=== PATIENT | female | born 1960 | race Caucasian/White ===

== ENCOUNTER 2017-07-17 08:24 | Inpatient (IN) | payer SELFPAY ==
[~2017-07-17] VITALS: Ht 157.5 cm; Wt 70.6 kg
[2017-07-17] VITALS (29 sets, daily range): BP systolic 109–149; BP diastolic 56–73; PULSE 35–66; RESP 0–23; TEMP 97.4–99.2; O2SAT 97–100
[2017-07-17] MEDS ORDERED: SODIUM CHLOR 0.9% 1000 ML INJ 1,000 ML IV ONE ×2 (09:15→13:30)
[2017-07-17] MEDS ORDERED: PIPERACIL-TAZO 3.375 GM PREMIX 50 ML IV ONE (09:15)
[2017-07-17] MEDS ORDERED: VANCOMYCIN INJ 1,000 MG in SODIUM CHLOR 0.9% 250 ML INJ 250 ML IV ONE (09:15)
[2017-07-17 09:26] LABS: AUTOMATED NEUTROPHIL # 7.5 TH/MM3 (1.8-7.7); BASOPHIL % 0.3 % (0.0-2.0); EOSINOPHIL # 0.1 TH/MM3 (0-0.4); EOSINOPHIL % 0.9 % (0.0-4.0); HEMATOCRIT 38.7 % (35.0-46.0); HEMO FLAGS DIFF FINAL; LYMPH % 8.6 % (9.0-44.0); LYMPHOCYTE # 0.7 TH/MM3 (1.0-4.8); MEAN CELL VOLUME 90.4 FL (80.0-100.0); MEAN CORPUSCULAR HEMOGLOBIN 30.1 PG (27.0-34.0); MEAN CORPUSCULAR HGB CONC 33.3 % (32.0-36.0); MONO % 3.6 % (0.0-8.0); NEUT % 86.6 % (16.0-70.0); PLATELET COUNT 162 TH/MM3 (150-450); RED BLOOD COUNT 4.29 MIL/MM3 (4.00-5.30); RED CELL DISTRIBUTION WIDTH 13.6 % (11.6-17.2); WHITE BLOOD COUNT 8.7 TH/MM3 (4.0-11.0)
[2017-07-17 09:34] LABS: BACTERIA, URINE FEW /hpf; BLOOD, URINE NEG (NEG); GLUCOSE,URINE TRACE mg/dL (NEG); KETONE, URINE TRACE mg/dL (NEG); MUCUS URINE FEW /lpf (OCC); NITRITE,URINE NEG (NEG); SQUAMOUS EPITHELIAL CELL URINE 2 /hpf (0-5); URINE COLOR LIGHT-YELLOW (YELLW/STRAW)
[2017-07-17 09:38] LABS: COMMENT (UR) CATH-CULTURE IND; CULTURE IF INDICATED CATH CULTURE IND
[2017-07-17 09:41] LABS: APTT (PATIENT) 24.8 SEC (24.3-30.1); PROTHROMBIN TIME - PATIENT 10.7 SEC (9.8-11.6)
[2017-07-17 09:42] LABS: ALT (GPT) 19 U/L (10-53); ANION GAP 10 MEQ/L (5-15); AST (GOT) 16 U/L (15-37); BICARBONATE 23.2 MEQ/L (21.0-32.0); BLOOD UREA NITROGEN 10 MG/DL (7-18); CHLORIDE 108 MEQ/L (98-107); GLOMERULAR FILTRATION RATE 102 ML/MIN (>89); POTASSIUM 3.1 MEQ/L (3.5-5.1); SODIUM (NA) 141 MEQ/L (136-145)
[2017-07-17 09:46] LABS: ALKALINE PHOSPHATASE 86 U/L (45-117); CREATINE KINASE 138 U/L (26-192); TOTAL BILIRUBIN ADULT 0.6 MG/DL (0.2-1.0)
--- NOTE | 2017-07-17 09:49 | RADRPT ---
EXAM DATE/TIME: 07/17/2017 09:33 [facility] COMPARISON: No previous studies available for comparison. INDICATIONS : Dizziness, nausea and vomiting. RADIATION DOSE: 34.36 CTDIvol (mGy) MEDICAL HISTORY : None SURGICAL HISTORY : Tubal ligation. ENCOUNTER: Initial ACUITY: 1 day PAIN SCALE: 4/10 LOCATION: Bilateral frontal TECHNIQUE: Multiple contiguous axial images were obtained of the head. Using automated exposure control and adj ustment of the mA and/or kV according to patient size, radiation dose was kept as low as reasonably a chievable to obtain optimal diagnostic quality images. DICOM format image data is available electro nically for review and comparison. FINDINGS: CEREBRUM: There is an area of increased attenuation in the basal ganglia bilaterally. This is more significant on the right than the left. I believe this represents calcification. There is no previous examination for direct comparison. A followup examination in 24 hours could be performed to assess for stability . The ventricles are normal in size and configuration. No extra-axial fluid collections are identifie d. No mass lesion is present. The sulci and gyri are otherwise intact. POSTERIOR FOSSA: The cerebellum and brainstem are intact. The 4th ventricle is midline. The cerebellopontine angle i s unremarkable. EXTRACRANIAL: The visualized portion of the orbits is intact. SKULL: The calvaria is intact. No evidence of skull fracture. CONCLUSION: 1. There is increased density within the basal ganglia bilaterally I believe this represents physiolo gic calcification note is more apparent on the right than the left. Please see above discussion. The examination is otherwise unremarkable. Allen Jaffe MD on July 17, 2017 at 9:46 Board Certified Radiologist. This report was verified electronically.
[2017-07-17 09:59] LABS: CKMB 1.8 NG/ML (0.5-3.6)
--- NOTE | 2017-07-17 10:05 | RADRPT ---
EXAM DATE/TIME: 07/17/2017 09:52 [facility] COMPARISON: No previous studies available for comparison. INDICATIONS : Short of breath. Patient complains of dizziness, nausea, vomiting, and headache. MEDICAL HISTORY : None. SURGICAL HISTORY : None. ENCOUNTER: Initial ACUITY: 1 day PAIN SCORE: 0/10 LOCATION: Bilateral chest FINDINGS: A single view of the chest demonstrates the lungs to be symmetrically aerated without evidence of mas s, infiltrate or effusion. The cardiomediastinal contours are unremarkable. Osseous structures are intact. CONCLUSION: No acute disease. Camacho Jaffe MD FACR on July 17, 2017 at 10:03 Board Certified Radiologist. This report was verified electronically.
[2017-07-17 11:20] LABS: LACTIC ACID GHOST NOT REPORTABLE
--- NOTE | 2017-07-17 13:17 | PD ---
HPI Chief Complaint: Dizziness Time Seen by Provider: 08:40 Travel History International Travel<30 days: No Contact w/Intl Traveler<30days: No Traveled to known affect area: No History of Present Illness HPI 57-year-old female complaining generalized malaise and weakness and dizziness and left leg redness and swelling. Patient states that she started having redness swelling of left leg several days ago. Patient does not know any injury to the left leg. Patient states that she has generalized malaise and weakness dizziness starting this morning. Patient denies any headache. Patient denies any chest pain or shortness of breath. Patient denies abdominal pain. Patient denies any focal weakness or numbness of the extremity. PFSH Past Medical History Medical History: Denies Significant Hx Tetanus Vaccination: > 5 Years Influenza Vaccination: Yes ?: Not LMP: 05/28/17 Tubal Ligation: Yes Past Surgical History Surgical History: No Previous Surgery Section: Yes Social History Alcohol Use: No Tobacco Use: No Substance Use: No Allergies-Medications (Allergen,Severity, Reaction): Coded Allergies: No Known Allergies (Verified Allergy, Unknown, 07/17/17) Reported Meds & Prescriptions Reported Meds & Active Scripts Active No Active Prescriptions or Reported Medications Review of Systems General / Constitutional: No: Fever Eyes: No: Visual changes HENT: Positive: Lightheadedness, No: Headaches Cardiovascular: No: Chest Pain or Discomfort Respiratory: No: Shortness of Breath Gastrointestinal: No: Abdominal Pain Genitourinary: No: Dysuria Musculoskeletal: No: Pain Skin: No Rash Neurologic: No: Weakness Psychiatric: No: Depression Endocrine: No: Polydipsia Hematologic/Lymphatic: No: Easy Bruising Physical Exam Narrative GENERAL: Well-nourished, well-developed patient. SKIN: Focused skin assessment warm/dry. HEAD: Normocephalic. EYES: No scleral icterus. No injection or drainage. NECK: Supple, trachea midline. No JVD or lymphadenopathy. CARDIOVASCULAR: Regular rate and rhythm without murmurs, gallops, or rubs. RESPIRATORY: Breath sounds equal bilaterally. No accessory muscle use. GASTROINTESTINAL: Abdomen soft, non-tender, nondistended. MUSCULOSKELETAL: Patient has Dell redness swelling tenderness anterior lateral aspect of the left lower leg. No calf tenderness. Negative Homans sign. BACK: Nontender without obvious deformity. No CVA tenderness. Neurologic exam: The patient is lethargic however answers questions appropriately. No obvious focal neurological deficit. Data Data Last Documented VS Vital Signs Date Time Temp Pulse Resp B/P (MAP) Pulse Ox O2 Delivery O2 Flow Rate FiO2 07/17/17 12:00 36 14 109/57 (74) 98 Room Air 07/17/17 08:55 97.4 Orders Orders Sodium Chlor 0.9% 1000 Ml Inj (Ns 1000 M (07/17/17 09:15) Vancomycin Inj (Vancomycin Inj) (07/17/17 09:15) Piperacil-Tazo 3.375 Gm Premix (Zosyn 3. (07/17/17 09:15) Complete Blood Count With Diff (07/17/17 09:04) Comprehensive Metabolic Panel (07/17/17 09:04) Prothrombin Time / Inr (Pt) (07/17/17 09:04) Act Partial Throm Time (Ptt) (07/17/17 09:04) Lactic Acid Sepsis Protocol (07/17/17 09:04) Ckmb (Isoenzyme) Profile (07/17/17 09:04) Troponin I (07/17/17 09:04) Urinalysis - C+S If Indicated (07/17/17 09:04) Blood Culture (07/17/17 09:04) Chest, Single Ap (07/17/17 09:04) Blood Glucose (07/17/17 09:04) Ecg Monitoring (07/17/17 09:04) Iv Access Insert/Monitor (07/17/17 09:04) Oximetry (07/17/17 09:04) Oxygen Administration (07/17/17 09:04) Ct Brain W/O Iv Contrast(Rout) (07/17/17 09:04) Urine Culture (07/17/17 09:05) CKMB (07/17/17 09:05) CKMB% (07/17/17 09:05) Ns (Bolus) Inj (07/17/17 13:30) Labs Laboratory Tests Test 07/17/17 09:05 07/17/17 13:05 White Blood Count 8.7 TH/MM3 Red Blood Count 4.29 MIL/MM3 Hemoglobin 12.9 GM/DL Hematocrit 38.7 % Mean Corpuscular Volume 90.4 FL Mean Corpuscular Hemoglobin 30.1 PG Mean Corpuscular Hemoglobin Concent 33.3 % Red Cell Distribution Width 13.6 % Platelet Count 162 TH/MM3 Mean Platelet Volume 8.8 FL Neutrophils (%) (Auto) 86.6 % Lymphocytes (%) (Auto) 8.6 % Monocytes (%) (Auto) 3.6 % Eosinophils (%) (Auto) 0.9 % Basophils (%) (Auto) 0.3 % Neutrophils # (Auto) 7.5 TH/MM3 Lymphocytes # (Auto) 0.7 TH/MM3 Monocytes # (Auto) 0.3 TH/MM3 Eosinophils # (Auto) 0.1 TH/MM3 Basophils # (Auto) 0.0 TH/MM3 CBC Comment DIFF FINAL Differential Comment Prothrombin Time 10.7 SEC Prothromb Time International Ratio 1.0 RATIO Activated Partial Thromboplast Time 24.8 SEC Urine Color LIGHT-YELLOW Urine Turbidity HAZY Urine pH 8.0 Urine Specific [place] 1.008 Urine Protein NEG mg/dL Urine Glucose (UA) TRACE mg/dL Urine Ketones TRACE mg/dL Urine Occult Blood NEG Urine Nitrite NEG Urine Bilirubin NEG Urine Urobilinogen LESS THAN 2.0 MG/DL Urine Leukocyte Esterase SMALL Urine RBC 3 /hpf Urine WBC 3 /hpf Urine Squamous Epithelial Cells 2 /hpf Urine Bacteria FEW /hpf Urine Mucus FEW /lpf Microscopic Urinalysis Comment CATH-CULTURE IND Blood Urea Nitrogen 10 MG/DL Creatinine 0.61 MG/DL Random Glucose 150 MG/DL Total Protein 7.0 GM/DL Albumin 3.2 GM/DL Calcium Level 7.8 MG/DL Alkaline Phosphatase 86 U/L Aspartate Amino Transf (AST/SGOT) 16 U/L Alanine Aminotransferase (ALT/SGPT) 19 U/L Total Bilirubin 0.6 MG/DL Sodium Level 141 MEQ/L Potassium Level 3.1 MEQ/L Chloride Level 108 MEQ/L Carbon Dioxide Level 23.2 MEQ/L Anion Gap 10 MEQ/L Estimat Glomerular Filtration Rate 102 ML/MIN Lactic Acid Level 2.7 mmol/L Total Creatine Kinase 138 U/L Creatine Kinase MB 1.8 NG/ML Troponin I LESS THAN 0.02 NG/ML MDM Medical Decision Making Medical Screen Exam Complete: Yes Emergency Medical Condition: Yes Interpretation(s) Last Impressions Head CT 07/17/17 0904 Signed Impressions: Service Date/Time: Monday, July 17, 2017 09:33 - CONCLUSION: 1. There is increased density within the basal ganglia bilaterally I believe this represents physiologic calcification note is more apparent on the right than the left. Please see above discussion. The examination is otherwise unremarkable. Allen Jaffe MD Chest X-Ray 07/17/17 0904 Signed Impressions: Service Date/Time: Monday, July 17, 2017 09:52 - CONCLUSION: No acute disease. Camacho Jaffe MD FACR 13:08 PM. CBC within normal limit. Potassium 3.1. Lactic acid 2.7. Cardiac enzymes are normal. UA negative. Differential Diagnosis Differential diagnosis including cellulitis, sepsis, slight imbalance, dehydration. Narrative Course 57-year-old female with generalized malaise and weakness and lightheadedness and left leg redness swelling tenderness. Normal saline solution 2 L IV bolus. Vancomycin 1 g IV. Zosyn 3.375 g IV. Diagnosis Primary Impression: Left leg cellulitis Additional Impressions: Sepsis Qualified Codes: A41.9 - Sepsis, unspecified organism Hypokalemia Admitting Information Admitting Physician Requests: Admit Scripts No Active Prescriptions or Reported Meds Carlos Torres MD Jul 17, 2017 13:17
[2017-07-17] MEDS ORDERED: RESP: ALBUTEROL 2.5 MG/IPRATROPIUM 0.5 MG NEB (PRN) INH (13:30)
[2017-07-17] MEDS ORDERED: MISCELLANEOUS NURSING INFORMATION XX SCH (13:30)
[2017-07-17] MEDS ORDERED: CHLORHEXIDINE GLUCONATE 2 % 1 PACK (2 CLOTHS) TOP PRN (13:30)
[2017-07-17] MEDS ORDERED: POTASSIUM PHOSPHATE MONOBASIC 500 MG TAB PO/TUBE PRN (13:32)
[2017-07-17] MEDS ORDERED: POTASSIUM PHOSPHATE INJ 30 MMOL in SODIUM CHLOR 0.9% 250 ML INJ 250 ML IV PRN (13:32)
[2017-07-17] MEDS ORDERED: MAGNESIUM OXIDE 400 MG TAB PO PRN (13:45)
[2017-07-17] MEDS ORDERED: POTASSIUM CHLORIDE 20 MEQ CONTROLLED RELEASE TAB PO ONE (13:45)
[2017-07-17] MEDS ORDERED: MAGNESIUM SULFATE INJ 2 GM in SODIUM CHLORIDE 0.9% INJ 96 ML IV PRN (13:45)
[2017-07-17] MEDS ORDERED: MAGNESIUM SULFATE INJ 4 GM in SODIUM CHLORIDE 0.9% INJ 92 ML IV PRN (13:45)
[2017-07-17] MEDS ORDERED: SODIUM PHOSPHATE INJ 30 MMOL in SODIUM CHLOR 0.9% 250 ML INJ 240 ML IV PRN (13:45)
[2017-07-17] MEDS ORDERED: POTASSIUM CHLORIDE 25 MEQ EFFERVESCENT TAB PO PRN (13:45)
[2017-07-17] MEDS ORDERED: GLUCAGON 1 MG/ML VIAL OTHER PRN (13:45)
[2017-07-17] MEDS ORDERED: POTASSIUM CHLOR 40 MEQ PREMIX 100 ML IV PRN ×2 (13:45)
[2017-07-17] MEDS ORDERED: POTASSIUM CHLOR 20 MEQ PREMIX 100 ML IV PRN ×2 (13:45)
[2017-07-17] MEDS ORDERED: POTASSIUM PHOSPHATE MONOBASIC 500 MG TAB PO PRN (13:45)
[2017-07-17] MEDS ORDERED: DEXTROSE 50% IN WATER 50 ML VIAL(D50) IV PUSH PRN (13:45)
[2017-07-17] MEDS: INSULIN NovoLIN REGULAR SUPPLEMENTAL SCALE SQ SCH ×2 (14:00→20:00)
--- NOTE | 2017-07-17 14:18 | RADRPT ---
EXAM DATE/TIME: 07/17/2017 13:45 [facility] COMPARISON: No previous studies available for comparison. INDICATIONS : Left leg redness and swelling. MEDICAL HISTORY : Left leg pain. SURGICAL HISTORY : Tubal ligation. section. ENCOUNTER: Initial ACUITY: 3 days PAIN SCORE: 9/10 LOCATION: Left leg. TECHNIQUE: Venous ultrasound of the leg was performed from the inguinal ligament to the proximal calf. Real-marichuy e, color Doppler and spectral tracing, compression and augmentation techniques were used. FINDINGS: There is normal compressibility of the deep venous system from the inguinal region to the proximal ca lf. No echogenic clot is seen in the lumen of the common femoral, femoral, popliteal, and posterior tibial veins. There is a normal response of the venous system to proximal and distal augmentation an d respiration. CONCLUSION: 1. No sonographic evidence for left lower extremity DVT. Joe Dudley MD on July 17, 2017 at 14:16 Board Certified Radiologist. This report was verified electronically.
[2017-07-17] MEDS: SODIUM CHLOR 0.9% 1000 ML INJ 1,000 ML IV SCH (14:23)
--- NOTE | 2017-07-17 15:02 | MH ---
cc: LAVONNE AGEE M.D. DATE OF ADMISSION: 07/17/2017 DATE OF : 1960 HISTORY OF PRESENT ILLNESS The patient is a 57-year-old female without significant past medical history, who presented to [facility] ED with complaints of malaise, generalized weakness and dizziness. She also reports swelling and redness of her left lower extremity. She denies any chest pain, shortness of breath, nausea, vomiting or any abdominal pain. She reports headaches along with blurry vision but denies any diplopia. On arrival to the ER she was bradycardic with heart rate of 40s to 50s. The patient was given atropine en route. A CT scan of the brain was obtained which showed increased density within the basal ganglia bilaterally which was thought to represent physiologic calcification. CT otherwise is unremarkable. Her laboratory data is significant for lactic acid of 2.7. The patient was given 2 liters of normal saline and her repeat lactic acid level measured at 1.5. Her troponin level was less than 0.02 with total CK of 138. In the ED the patient was given vancomycin and Zosyn. Chest x-ray in the ER showed no acute disease. The patient denies any use of a calcium channel emil or beta emil that might be attributing to her bradycardia. In addition she denies any history of thyroid disease. She is awake, alert on room air oxygen with saturation of 98%. Temperature is 97.4 orally. PAST MEDICAL HISTORY She denies any history of hypertension, diabetes mellitus, coronary artery disease. PAST SURGICAL HISTORY Previous x2. SOCIAL HISTORY Non-smoker, non-drinker. Denies any drug use. FAMILY HISTORY Noncontributory. ALLERGIES No known drug allergies. MEDICATIONS No active prescriptions. REVIEW OF SYSTEMS As per HPI. The rest of the review of systems is unremarkable. PHYSICAL EXAMINATION GENERAL: A 57-year-old female lying in bed in no acute distress. VITAL SIGNS: Temperature 97.4, pulse 40s to 50s, blood pressure 109/57, respiratory rate 14, saturation 98% on room air. HEENT: Atraumatic, normocephalic. Pupils equal and reactive to light and accommodation. Extraocular muscles intact. Conjunctiva pink. Non-icteric sclera. Oral mucosa within normal. NECK: Supple. No JVD, adenopathy or thyromegaly. Trachea in the midline. CARDIOVASCULAR: Sinus levy. Normal S1, S2. No murmurs, rubs or gallops noted. PULMONARY: Bilateral equal entry. No rales or wheezing. ABDOMEN: Soft, nontender. No distention. Positive bowel sounds. EXTREMITIES: No cyanosis or clubbing. Erythema and edema noted in the left lower extremity. NEUROLOGIC: No focal sensory deficit. LABORATORY DATA WBC 8.7, hemoglobin 12.9, hematocrit 38, platelet count 162. Sodium 141, potassium 3.1, chloride 108, CO2 23, BUN 10, creatinine 0.61, glucose 150, lactic acid 2.7, repeat 1.5. LFTs within normal. Troponin less than 0.02. Total CK 138. Albumin 3.2. INR 1, PT 10.7, PTT 24.8. Urinalysis showed small leukocyte esterase, 3 wbc's. RADIOGRAPHIC STUDIES A chest x-ray showed no acute cardiopulmonary disease. CT brain showed no acute intracranial findings. IMPRESSION 1. Cellulitis of the left lower extremity. 2. Mild lactic acidemia resolved. 3. Sinus bradycardia. 4. Dizziness, likely secondary to bradycardia. 5. Hyperglycemia. 6. Hypokalemia. PLAN/RECOMMENDATIONS 1. Monitor neuro status closely and avoid any sedatives. CT scan of the brain in the ER negative for acute intracranial findings. Will check a urine drug screen. 2. Oxygen p.r.n. to maintain sats above 92%. 3. Bronchodilators on a p.r.n. basis. 4. Monitor heart rate and blood pressure closely and maintain MAP greater than 65 mmHg. She was given 2 liters of crystalloid in the ED. Her lactic acid cleared. Will continue with IV fluids, NS at 84 mL an hour. 5. Monitor cardiac enzymes with troponins. Check EKG and will obtain 2-D echo to evaluate LV function and to rule out regional wall motion abnormalities. Consult the cardiology service. Check baseline TSH level. 6. Monitor renal function, I's and O's, and electrolyte replacement per protocol. Will need potassium replacement today. 7. Start p.o. heart-healthy diet. 8. Continue with broad-spectrum antibiotics, vancomycin and Zosyn. Monitor for signs of infections which include fever and WBC. Follow-up on blood and urine cultures which were performed in the ER. 9. Monitor her CBC. 10. Place on sliding scale insulin with Accu-Cheks for glycemic control and check a baseline TSH level as stated above. 11. No indications for GI prophylaxis. 12. DVT prophylaxis with SCDs to the right lower extremity and Lovenox 40 mg subcu daily. 13. Will check a Doppler ultrasound of the left lower extremity. 14. Further recommendations will be based on the hospital course. Addendum: Lactic acid cleared seen by Cardiology-Dr. Monique will observe for now. Will sign off and transfer care to [facility]. MD CLAUDETTE Hester/MEHNAZ /2:19 PM /2:40 PM MTDD
[2017-07-17] MEDS: ENOXAPARIN SODIUM 40 MG/0.4 ML SYRINGE SQ SCH (15:09)
[2017-07-17 15:11] LABS: CREATINE KINASE 179 U/L (26-192)
[2017-07-17] MEDS: RESP: ALBUTEROL 2.5 MG/IPRATROPIUM 0.5 MG NEB (SCH) INH ×2 (15:19→21:18)
[2017-07-17 15:24] LABS: CKMB 3.3 NG/ML (0.5-3.6)
[2017-07-17 16:02] LABS: MAGNESIUM 1.8 MG/DL (1.5-2.5)
--- NOTE | 2017-07-17 16:50 | EKG ---
Date Performed: 07/17/2017 Time Performed: 14:09:38 PTAGE: 57 years EKG: SINUS BRADYCARDIA WITH SINUS ARRHYTHMIA WITH SHORT CO INTERVAL BORDERLINE ECG NO PREVIOUS TRACING DOCTOR: Naveen Monique Interpretating Date/Time 07/17/2017 16:48:46
--- NOTE | 2017-07-17 17:08 | ECHRPT ---
Indication: bradycardia CONCLUSIONS Normal left ventricular size. Wall thickness is normal. The left ventricular systolic function is no rmal with an estimated ejection fraction in the range of 55-60%. Trace mitral valve regurgitation. There is trace tricuspid valve regurgitation. The estimated pulmonary arterial pressure is 30 mmHg. BP: / HR: Rhythm: Sinus MEASUREMENTS (Male / Female) Normal Values Technical Quality:Good 2D ECHO LV Diastolic Diameter PLAX 4.4 cm 4.2 - 5.9 / 3.9 - 5.3 cm LV Systolic Diameter PLAX 3.3 cm IVS Diastolic Thickness 0.9 cm 0.6 - 1.0 / 0.6 - 0.9 cm LVPW Diastolic Thickness 0.8 cm 0.6 - 1.0 / 0.6 - 0.9 cm LV Relative Wall Thickness 0.4 M-MODE Aortic Root Diameter MM 3.7 cm AV Cusp Separation MM 2.2 cm DOPPLER MR Peak Velocity 350.0 cm/s MR Peak Gradient 49.0 mmHg Mitral E Point Velocity 95.3 cm/s Mitral A Point Velocity 72.6 cm/s Mitral E to A Ratio 1.3 TR Peak Velocity 231.0 cm/s TR Peak Gradient 21.3 mmHg Right Atrial Pressure 10.0 mmHg Pulmonary Artery Systolic Pressu 31.3 mmHg Right Ventricular Systolic Press 31.3 mmHg FINDINGS LEFT VENTRICLE Normal left ventricular size. Wall thickness is normal. The left ventricular systolic function is normal with an estimated ejection fraction in the range of 55-60%. RIGHT VENTRICLE Normal right ventricular size and systolic function. LEFT ATRIUM The left atrial size is normal. RIGHT ATRIUM The right atrial size is normal. ATRIAL SEPTUM Normal atrial septal thickness without atrial level shunting by limited color doppler interrogation. AORTA The aortic root and proximal ascending aorta are normal in size on limited imaging. MITRAL VALVE Trace mitral valve regurgitation. AORTIC VALVE Aortic valve sclerosis is present. TRICUSPID VALVE There is trace tricuspid valve regurgitation. The estimated pulmonary arterial pressure is 30 mmHg. PULMONARY VALVE No pulmonary valve regurgitation or stenosis. VESSELS The inferior vena cava is normal in size. PERICARDIUM No pericardial effusion. Naveen Monique MD (Electronically Signed) Final Date:17 July 2017 17:07
[2017-07-17] MEDS: PIPERACIL-TAZO 4.5 GM PREMIX 100 ML IV SCH ×2 (17:57→21:19)
--- NOTE | 2017-07-17 18:14 | MB ---
cc: RAUL SORENSEN M.D. DATE OF CONSULTATION 07/17/17 REASON FOR CONSULTATION Bradycardia. HISTORY OF PRESENT ILLNESS The patient is 57-year-old white female with basically no major past medical history except for occasional vertigo for which she uses p.r.n. meclizine who presented to the hospital with dizziness, generalized malaise, nausea, vertigo. Here in the emergency department monitoring has revealed bradycardia. The patient states she had mild vertigo starting last night. When she awoke this morning the vertigo was especially severe associated with nausea, most of the day today. She has had near-syncope without any loss of consciousness. She did have one episode of vomiting earlier this morning. The patient denies chest pain, palpitations, paroxysmal nocturnal dyspnea, fevers. For the past 24 hours she has noted mild swelling of the left lower extremity. Today she has had mild dyspnea at rest. She also denies pleurisy, cough, hemoptysis. PAST MEDICAL HISTORY As above. MEDICATIONS AT HOME P.r.n. meclizine. ALLERGIES NO KNOWN DRUG ALLERGIES. FAMILY HISTORY There is no significant family history of cardiac disease. SOCIAL HISTORY The patient denies alcohol, drug or tobacco abuse. REVIEW OF SYSTEMS As in the history of present illness, otherwise negative or noncontributory. She also denies melena, bright red blood per rectum. Rarely she experiences dyspepsia. At this time she does have a moderate headache. PHYSICAL EXAMINATION VITAL SIGNS: her blood pressure 149/68 with a pulse of 54, respirations 13. GENERAL: She is a well-developed, well-nourished white female in no acute distress HEENT: On examination jugular venous pressure is normal. Carotid pulses are 2+ bilaterally without bruits. CHEST: Examination of the chest reveals unlabored respiratory effort with clear lung rizo. CARDIOVASCULAR: On cardiac examination she has a bradycardic regular rhythm without S3-S4 or murmur. ABDOMEN: On abdominal examination she has a soft, obese, nontender abdomen. Bowel sounds are present. There is no definite hepatosplenomegaly. EXTREMITIES: Examination of extremities reveals no clubbing or cyanosis. There is mild erythema and mild pretibial edema on the left lower extremity. LABORATORY DATA Laboratory data includes normal CBC, potassium 3.1, BUN 10, creatinine 0.61. Negative cardiac enzymes. TSH 1.04. IMAGING STUDIES Chest x-ray shows no acute disease. IMPRESSION Bradycardia, left lower extremity swelling in this 57-year-old white female with basically no major past medical history except for intermittent vertigo for which she uses meclizine. Her EKG does show occasional junctional escape beats. Monitoring at this time shows sinus bradycardia with heart rates in the 50s, and her heart rates for the past 2-3 hours have been trending upward. I suspect her bradycardia is mostly vasovagal mediated. She has been nauseated with moderate headache most of today. She appears to also have ongoing problems with fairly severe vertigo. Overall, there is no definite evidence for acute coronary syndrome. EKG shows no acute ST-segment or T-wave changes. Cardiac enzymes are negative for myocardial infarction. Echocardiogram is pending. Overall, I do not believe she will need a pacemaker. RECOMMENDATIONS 1. Continued cardiac monitoring. 2. Unless she develops high degree AV block or sustained heart rates in the 20s and 30s we will not recommend a permanent pacemaker. MD LULU Morales/TIKI /4:20 PM /6:04 PM [facility]
[2017-07-18] VITALS (40 sets, daily range): BP systolic 102–151; BP diastolic 52–75; PULSE 33–66; RESP 3–18; TEMP 97.6–98.9; O2SAT 97–100
[2017-07-18] MEDS ORDERED: VANCOMYCIN INJ 1,000 MG in SODIUM CHLOR 0.9% 250 ML INJ 250 ML IV SCH ×2
[2017-07-18] MEDS: SODIUM CHLOR 0.9% 1000 ML INJ 1,000 ML IV SCH ×2 (01:55→13:51)
[2017-07-18] MEDS: INSULIN NovoLIN REGULAR SUPPLEMENTAL SCALE SQ SCH ×3 (02:00→14:02)
[2017-07-18] MEDS: RESP: ALBUTEROL 2.5 MG/IPRATROPIUM 0.5 MG NEB (SCH) INH ×4 (03:21→20:55)
[2017-07-18] MEDS: CHLORHEXIDINE GLUCONATE 2 % 1 PACK (2 CLOTHS) TOP SCH (04:00)
[2017-07-18] MEDS: PIPERACIL-TAZO 4.5 GM PREMIX 100 ML IV SCH ×2 (04:00→09:04)
[2017-07-18 04:26] LABS: AUTOMATED NEUTROPHIL # 6.1 TH/MM3 (1.8-7.7); BASOPHIL % 0.4 % (0.0-2.0); EOSINOPHIL % 0.2 % (0.0-4.0); HEMATOCRIT 38.3 % (35.0-46.0); HEMO FLAGS DIFF FINAL; LYMPH % 15.8 % (9.0-44.0); LYMPHOCYTE # 1.3 TH/MM3 (1.0-4.8); MEAN CELL VOLUME 90.2 FL (80.0-100.0); MEAN CORPUSCULAR HEMOGLOBIN 29.5 PG (27.0-34.0); MEAN CORPUSCULAR HGB CONC 32.7 % (32.0-36.0); MONO % 7.6 % (0.0-8.0); PLATELET COUNT 183 TH/MM3 (150-450); RED BLOOD COUNT 4.24 MIL/MM3 (4.00-5.30); RED CELL DISTRIBUTION WIDTH 13.6 % (11.6-17.2)
[2017-07-18 04:47] LABS: ANION GAP 8 MEQ/L (5-15); AST (GOT) 13 U/L (15-37); BICARBONATE 24.9 MEQ/L (21.0-32.0); BLOOD UREA NITROGEN 6 MG/DL (7-18); CHLORIDE 110 MEQ/L (98-107); GLOMERULAR FILTRATION RATE 96 ML/MIN (>89); MAGNESIUM 1.8 MG/DL (1.5-2.5); POTASSIUM 3.7 MEQ/L (3.5-5.1); SODIUM (NA) 143 MEQ/L (136-145)
[2017-07-18 04:48] LABS: ALT (GPT) 16 U/L (10-53)
[2017-07-18 04:56] LABS: ALKALINE PHOSPHATASE 76 U/L (45-117); FREE T4 0.97 NG/DL (0.76-1.46); TOTAL BILIRUBIN ADULT 0.4 MG/DL (0.2-1.0)
--- NOTE | 2017-07-18 09:41 | PD.CARD.PN ---
Subjective Subjective Remarks Mildly dizzy. (+) vertigo. Mild headache. No ear pain, CP, dyspnea, palpitations. Nauseated. No vomiting. Objective Medications Item Value Date Time Enoxaparin Sodium 40 mg 07/17/17 1500 (Lovenox Inj) Q24H/SQ 07/17/17 1509 Vital Signs / I&O Vital Signs Date Time Temp Pulse Resp B/P (MAP) Pulse Ox O2 Delivery O2 Flow Rate FiO2 07/18/17 06:00 46 07/18/17 04:30 34 8 100 07/18/17 04:15 33 6 100 07/18/17 04:01 38 3 110/58 (75) 99 07/18/17 04:00 46 07/18/17 04:00 98.5 39 5 98 07/18/17 03:45 41 15 99 07/18/17 03:30 40 16 100 07/18/17 03:22 100 07/18/17 03:15 36 10 99 07/18/17 03:00 37 11 121/57 (78) 100 07/18/17 02:45 36 10 100 07/18/17 02:30 34 13 100 07/18/17 02:15 40 14 100 07/18/17 02:00 46 07/18/17 02:00 40 14 107/57 (74) 100 07/18/17 01:45 42 16 99 07/18/17 01:30 42 15 99 07/18/17 01:15 44 16 100 07/18/17 01:00 66 16 108/57 (74) 100 07/18/17 00:45 37 16 100 07/18/17 00:30 37 9 100 07/18/17 00:15 48 7 100 07/18/17 00:00 46 07/18/17 00:00 98.9 42 9 118/58 (78) 99 07/17/17 23:45 38 14 98 07/17/17 23:30 35 17 99 07/17/17 23:25 98 07/17/17 23:15 38 2 100 07/17/17 23:00 41 07/17/17 23:00 40 7 112/59 (76) 99 07/17/17 22:45 44 11 98 07/17/17 22:30 45 13 97 07/17/17 22:15 46 12 97 07/17/17 22:01 46 0 117/56 (76) 98 07/17/17 22:00 41 07/17/17 22:00 46 0 98 07/17/17 21:45 48 12 98 07/17/17 21:30 41 8 100 07/17/17 21:22 99 21 07/17/17 21:15 37 11 98 07/17/17 21:00 99.1 44 10 132/73 (92) 100 07/17/17 20:45 66 23 100 07/17/17 20:30 48 18 99 07/17/17 20:30 48 18 99 07/17/17 20:15 47 16 98 07/17/17 18:00 38 10 121/57 (78) 100 07/17/17 18:00 37 07/17/17 17:00 99.2 49 12 138/65 (89) 100 07/17/17 17:00 37 07/17/17 16:30 07/17/17 15:20 100 21 07/17/17 15:15 100 07/17/17 15:00 40 13 149/68 (95) 100 Room Air 07/17/17 14:00 48 12 135/61 (85) 100 Room Air 07/17/17 13:00 36 14 119/60 (79) 100 Room Air 07/17/17 12:00 36 14 109/57 (74) 98 Room Air 07/17/17 11:43 45 12 119/62 (81) 100 Room Air I/O 07/17/17 07/17/17 07/17/17 07/18/17 07/18/17 07/18/17 07:00 15:00 23:00 07:00 15:00 23:00 Intake Total 2300 ml 240 ml 500 ml Output Total 400 ml Balance 2300 ml 240 ml 100 ml Intake Oral 240 ml 500 ml IV Total 2300 ml Output Urine Total 400 ml # Voids 1 0 Physical Exam GENERAL: Well developed, well nourished. No acute distress. HEENT: Jugular venous pressure is normal. CHEST: Lungs clear to auscultation anteriorly. CARDIAC: Bradycardic regular rhythm without S3, S4, or murmur. ABDOMEN: Soft, nontender, no hepatosplenomegaly. Bowel sounds present. EXTREMITIES: No clubbing, cyanosis, or edema. Left lower extremity erythema much improved. Laboratory Laboratory Tests Test 07/17/17 13:05 07/17/17 13:50 07/17/17 16:30 07/18/17 04:07 Lactic Acid Level 1.5 mmol/L 1.4 mmol/L Phosphorus Level 3.5 MG/DL 4.2 MG/DL Magnesium Level 1.8 MG/DL 1.8 MG/DL Total Creatine Kinase 179 U/L Creatine Kinase MB 3.3 NG/ML Troponin I LESS THAN 0.02 NG/ML Thyroid Stimulating Hormone 3rd Gen 1.040 uIU/ML 0.581 uIU/ML Nasal Screen MRSA (PCR) MRSA NOT DETECTED White Blood Count 8.0 TH/MM3 Red Blood Count 4.24 MIL/MM3 Hemoglobin 12.5 GM/DL Hematocrit 38.3 % Mean Corpuscular Volume 90.2 FL Mean Corpuscular Hemoglobin 29.5 PG Mean Corpuscular Hemoglobin Concent 32.7 % Red Cell Distribution Width 13.6 % Platelet Count 183 TH/MM3 Mean Platelet Volume 8.3 FL Neutrophils (%) (Auto) 76.0 % Lymphocytes (%) (Auto) 15.8 % Monocytes (%) (Auto) 7.6 % Eosinophils (%) (Auto) 0.2 % Basophils (%) (Auto) 0.4 % Neutrophils # (Auto) 6.1 TH/MM3 Lymphocytes # (Auto) 1.3 TH/MM3 Monocytes # (Auto) 0.6 TH/MM3 Eosinophils # (Auto) 0.0 TH/MM3 Basophils # (Auto) 0.0 TH/MM3 CBC Comment DIFF FINAL Differential Comment Blood Urea Nitrogen 6 MG/DL Creatinine 0.64 MG/DL Random Glucose 92 MG/DL Total Protein 6.5 GM/DL Albumin 2.8 GM/DL Calcium Level 8.1 MG/DL Alkaline Phosphatase 76 U/L Aspartate Amino Transf (AST/SGOT) 13 U/L Alanine Aminotransferase (ALT/SGPT) 16 U/L Total Bilirubin 0.4 MG/DL Sodium Level 143 MEQ/L Potassium Level 3.7 MEQ/L Chloride Level 110 MEQ/L Carbon Dioxide Level 24.9 MEQ/L Anion Gap 8 MEQ/L Estimat Glomerular Filtration Rate 96 ML/MIN Free Thyroxine 0.97 NG/DL Assessment and Plan Problem List: (1) Bradycardia ICD Codes: R00.1 - Bradycardia, unspecified Status: Acute Plan: Persistent bradycardia this morning, often in junctional rhythm or sinus bradycardia with junctional escape beats. Patient normotensive. Echo normal. Her "dizziness" appears more due to vertigo. Suspect some of the bradycardia may be vasovagal induced. REC continued monitoring, no dopamine or Isuprel unless she is hypotensive treat her vertigo, consider outpatient physical therapy as this problem has been ongoing for many years treat her nausea consider ruling out acute cerebellar CVA Code Status full code Discussed Condition With patient Naveen Monique MD Jul 18, 2017 09:41
[2017-07-18] MEDS ORDERED: ONDANSETRON HCL 4 MG/2 ML VIAL IV PUSH PRN (09:45)
[2017-07-18] MEDS ORDERED: ONDANSETRON HCL 4 MG/2 ML VIAL IV PUSH ONE (10:00)
[2017-07-18 10:45] LABS: HEMOGLOBIN A1a 1.3 %; HEMOGLOBIN A1b 0.8 %; HEMOGLOBIN Ao 84.3 %; HEMOGLOBIN F 1.4 %; HEMOGLOBIN P3 3.7 %
--- NOTE | 2017-07-18 11:26 | HHI.PR ---
Subjective Remarks Follow-up for vertigo possible infection Patient stated she came in more due to her vertigo. She said that she had this for many years and she's been on meclizine in the past. She felt like it has worsened. She denies any chest pain, palpitation, shortness of breathing, or lightheadedness. She states she did not know that she had a heart issue. Patient also complaining of an infection on her left prince. Patient's nurse is at the bedside during interview. Objective Vitals Vital Signs Date Time Temp Pulse Resp B/P (MAP) Pulse Ox O2 Delivery O2 Flow Rate FiO2 07/18/17 10:28 99 07/18/17 06:00 46 07/18/17 04:30 34 8 100 07/18/17 04:15 33 6 100 07/18/17 04:01 38 3 110/58 (75) 99 07/18/17 04:00 46 07/18/17 04:00 98.5 39 5 98 07/18/17 03:45 41 15 99 07/18/17 03:30 40 16 100 07/18/17 03:22 100 07/18/17 03:15 36 10 99 07/18/17 03:00 37 11 121/57 (78) 100 07/18/17 02:45 36 10 100 07/18/17 02:30 34 13 100 07/18/17 02:15 40 14 100 07/18/17 02:00 46 07/18/17 02:00 40 14 107/57 (74) 100 07/18/17 01:45 42 16 99 07/18/17 01:30 42 15 99 07/18/17 01:15 44 16 100 07/18/17 01:00 66 16 108/57 (74) 100 07/18/17 00:45 37 16 100 07/18/17 00:30 37 9 100 07/18/17 00:15 48 7 100 07/18/17 00:00 46 07/18/17 00:00 98.9 42 9 118/58 (78) 99 07/17/17 23:45 38 14 98 07/17/17 23:30 35 17 99 07/17/17 23:25 98 07/17/17 23:15 38 2 100 07/17/17 23:00 41 07/17/17 23:00 40 7 112/59 (76) 99 07/17/17 22:45 44 11 98 07/17/17 22:30 45 13 97 07/17/17 22:15 46 12 97 07/17/17 22:01 46 0 117/56 (76) 98 07/17/17 22:00 41 07/17/17 22:00 46 0 98 07/17/17 21:45 48 12 98 07/17/17 21:30 41 8 100 07/17/17 21:22 99 21 07/17/17 21:15 37 11 98 07/17/17 21:00 99.1 44 10 132/73 (92) 100 07/17/17 20:45 66 23 100 07/17/17 20:30 48 18 99 07/17/17 20:30 48 18 99 07/17/17 20:15 47 16 98 07/17/17 18:00 38 10 121/57 (78) 100 07/17/17 18:00 37 07/17/17 17:00 99.2 49 12 138/65 (89) 100 07/17/17 17:00 37 07/17/17 16:30 07/17/17 15:20 100 21 07/17/17 15:15 100 07/17/17 15:00 40 13 149/68 (95) 100 Room Air 07/17/17 14:00 48 12 135/61 (85) 100 Room Air 07/17/17 13:00 36 14 119/60 (79) 100 Room Air 07/17/17 12:00 36 14 109/57 (74) 98 Room Air 07/17/17 11:43 45 12 119/62 (81) 100 Room Air I/O 07/17/17 07/17/17 07/17/17 07/18/17 07/18/17 07/18/17 07:00 15:00 23:00 07:00 15:00 23:00 Intake Total 2300 ml 240 ml 500 ml Output Total 400 ml Balance 2300 ml 240 ml 100 ml Intake Oral 240 ml 500 ml IV Total 2300 ml Output Urine Total 400 ml # Voids 1 0 Result Diagram: 07/18/1740607/18/17406 Objective Remarks GENERAL: in NAD SKIN: right erythematous papule with minimal pustular fluid incase on the mid prince HEAD: Normocephalic. EYES: No scleral icterus. No injection or drainage. NECK: Supple, trachea midline. No JVD or lymphadenopathy. CARDIOVASCULAR: Regular rate and rhythm without murmurs, gallops, or rubs. RESPIRATORY: Breath sounds equal bilaterally. No accessory muscle use. GASTROINTESTINAL: Abdomen soft, non-tender, nondistended. MUSCULOSKELETAL: No cyanosis, or edema. BACK: Nontender without obvious deformity. No CVA tenderness. Medications and IVs Current Medications Sodium Chloride 1,000 ml @ 999 mls/hr BOLUS ONCE IV Last administered on 07/17 09:47; Start 07/17/17 at 09:15; Stop 07/17/17 at 10:15; Status DC Vancomycin HCl 1000 mg/Sodium Chloride 250 ml @ 250 mls/hr ONCE ONCE IV Last administered on 07/17/17 12:06; Start 07/17/17 at 09:15; Stop 07/18/17 at 10:01 ; Status DC Piperacillin Sod/ Tazobactam Sod 50 ml @ 100 mls/hr ONCE ONCE IV Last administered on 07/17/17 09:47; Start 07/17/17 at 09:15; Stop 07/17/17 at 09:44 ; Status DC Sodium Chloride 1,000 ml @ 999 mls/hr BOLUS ONCE IV Last administered on 07/17 13:42; Start 07/17/17 at 13:30; Stop 07/17/17 at 14:30; Status DC Albuterol/ Ipratropium (Duoneb Neb) 1 ampule Q6HR NEB INH Last administered on 07/17/17 21:18; Start 07/17/17 at 16:00 Albuterol/ Ipratropium (Duoneb Neb) 1 ampule Q2HR NEB PRN INH WHEEZING; Start 07/17/17 at 13:30 Enoxaparin Sodium (Lovenox Inj) 40 mg Q24H SQ Last administered on 07/17/17 15 :09; Start 07/17/17 at 15:00 Miscellaneous Information 1 Q361D XX ; Start 07/17/17 at 13:30 Chlorhexidine Gluconate (Chlorhexidine 2% Cloth) 3 pack Taper DAILY@04 TOP Last administered on 07/18/17 04:00; Start 07/18/17 at 04:00; Stop 07/14/18 at 03:59 Chlorhexidine Gluconate (Chlorhexidine 2% Cloth) 3 pack UNSCH PRN TOP HYGIENIC CARE; Start 07/17/17 at 13:30 Dextrose (D50w (Vial) Inj) 50 ml UNSCH PRN IV PUSH HYPOGLYCEMIA-SEE COMMENTS; Start 07/17/17 at 13:45 Glucagon (Glucagon Inj) 1 mg UNSCH PRN OTHER HYPOGLYCEMIA-SEE COMMENTS; Start 07/17/17 at 13:45 Insulin Human Regular (NovoLIN R SUPPLEMENTAL SCALE) 1 Q6H SQ ; Start 07/17/17 at 14:00 Potassium Chloride 100 ml @ 50 mls/hr Q2H PRN IV For Potassium 2.8 - 3.2 mEq/L ; Start 07/17/17 at 13:45 Potassium Chloride 100 ml @ 50 mls/hr Q2H PRN IV For Potassium 2.8 - 3.2 mEq/L ; Start 07/17/17 at 13:45 Potassium Bicarb/ Potassium Chloride (K-Lyte Cl Eff) 50 meq UNSCH PRN PO For Potassium 3.3 - 3.5 mEq/L; Start 07/17/17 at 13:45 Potassium Chloride 100 ml @ 25 mls/hr UNSCH PRN IV For Potassium 3.3 - 3.5 mEq /L; Start 07/17/17 at 13:45 Potassium Chloride 100 ml @ 50 mls/hr Q2H PRN IV For Potassium 3.3 - 3.5 mEq/L ; Start 07/17/17 at 13:45 Magnesium Sulfate 4 gm/Sodium Chloride 100 ml @ 50 mls/hr UNSCH PRN IV For Magnesium 0.9 - 1.1 mg/dL; Start 07/17/17 at 13:45 Magnesium Oxide (Mag-Ox) 800 mg UNSCH PRN PO For Magnesium 1.2 - 1.6 mg/dL; Start 07/17/17 at 13:45 Magnesium Sulfate 2 gm/Sodium Chloride 100 ml @ 50 mls/hr UNSCH PRN IV For Magnesium 1.2 - 1.6 mg/dL; Start 07/17/17 at 13:45 Potassium Phosphate (K-Phos) 2,000 mg Q4H PRN PO For Phosphorus < 2.5 mg/dL; Start 07/17/17 at 13:45 Sodium Phosphate 30 mmol/Sodium Chloride 250 ml @ 42 mls/hr UNSCH PRN IV For Phosphorus < 2.5 mg/dL; Start 07/17/17 at 13:45 Potassium Phosphate (K-Phos) 2,000 mg UNSCH PRN PO/TUBE SEE LABEL COMMENTS; Start 07/17/17 at 13:32 Potassium Phosphate 30 mmol/ Sodium Chloride 260 ml @ 42 mls/hr UNSCH PRN IV SEE LABEL COMMENTS; Start 07/17/17 at 13:32 Potassium Chloride (KCl) 40 meq ONCE ONCE PO Last administered on 07/17/17 14 :37; Start 07/17/17 at 13:45; Stop 07/17/17 at 13:46; Status DC Sodium Chloride 1,000 ml @ 84 mls/hr [id number] IV Last administered on 01:55; Start 07/17/17 at 14:00 Vancomycin HCl 1000 mg/Sodium Chloride 250 ml @ 250 mls/hr Q12H IV Last administered on 07/18/17 00:00; Start 07/18/17 at 00:00; Stop 07/18/17 at 10:01 ; Status DC Piperacillin Sod/ Tazobactam Sod 100 ml @ 200 mls/hr Q6H IV Last administered on 07/18/17 09:04; Start 07/17/17 at 16:00; Stop 07/18/17 at 10:01; Status DC Meclizine HCl (Antivert) 25 mg TID PO ; Start 07/18/17 at 13:00 Ondansetron HCl (Zofran Inj) 4 mg Q8HR PRN IV PUSH NAUSEA; Start 07/18/17 at 09 :45 Ondansetron HCl (Zofran Inj) 4 mg ONCE ONCE IV PUSH ; Start 07/18/17 at 10:00; Stop 07/18/17 at 10:01; Status DC Cephalexin Monohydrate (Keflex) 500 mg Q6HR PO ; Start 07/18/17 at 12:00 A/P Assessment and Plan Cellulitis of the left lower extremity/Impetigo. -Patient was on vancomycin and Zosyn. A second improvement. Will discontinue medication. Start Keflex and monitor clinically. Sinus bradycardia -Seemed to be asymptomatic. [employer] following. At the moment no indication for any pacemaker. -Per [employer] inspector repairer continued monitoring, no dopamine or Isuprel unless she is hypotensive. Vertigo, chronic -Patient has been on meclizine the past. Will try meclizine again. Will get MRI of the head. We'll also consult PT. Hypokalemia -Replenish as needed. DVT prophylaxis -On Lovenox. Patrica Canada MD Jul 18, 2017 11:26
[2017-07-18] MEDS: CEPHALEXIN MONOHYDRATE 500 MG CAP PO SCH ×3 (13:30→23:21)
[2017-07-18] MEDS: MECLIZINE HCL 25 MG TAB PO SCH ×2 (13:30→17:05)
[2017-07-18] MEDS: ENOXAPARIN SODIUM 40 MG/0.4 ML SYRINGE SQ SCH (15:45)
[2017-07-19] VITALS (26 sets, daily range): BP systolic 91–126; BP diastolic 51–68; PULSE 41–75; RESP 12–22; TEMP 98.2–98.6; O2SAT 95–100
[2017-07-19] MEDS: SODIUM CHLOR 0.9% 1000 ML INJ 1,000 ML IV SCH ×2 (01:45→14:03)
[2017-07-19] MEDS: CHLORHEXIDINE GLUCONATE 2 % 1 PACK (2 CLOTHS) TOP SCH (04:00)
[2017-07-19] MEDS: RESP: ALBUTEROL 2.5 MG/IPRATROPIUM 0.5 MG NEB (SCH) INH ×4 (04:00→20:13)
[2017-07-19] MEDS: CEPHALEXIN MONOHYDRATE 500 MG CAP PO SCH ×4 (05:14→23:53)
[2017-07-19 07:43] LABS: HEMATOCRIT 38.1 % (35.0-46.0); MEAN CELL VOLUME 89.3 FL (80.0-100.0); MEAN CORPUSCULAR HEMOGLOBIN 29.8 PG (27.0-34.0); MEAN CORPUSCULAR HGB CONC 33.4 % (32.0-36.0); PLATELET COUNT 175 TH/MM3 (150-450); RED BLOOD COUNT 4.27 MIL/MM3 (4.00-5.30); RED CELL DISTRIBUTION WIDTH 13.4 % (11.6-17.2); REVIEW FLAG FINAL; WHITE BLOOD COUNT 6.8 TH/MM3 (4.0-11.0)
[2017-07-19 08:28] LABS: BICARBONATE 26.3 MEQ/L (21.0-32.0)
[2017-07-19 08:35] LABS: POTASSIUM 2.9 MEQ/L (3.5-5.1)
[2017-07-19] MEDS: MECLIZINE HCL 25 MG TAB PO SCH ×3 (08:53→17:26)
[2017-07-19] MEDS ORDERED: POTASSIUM CHLORIDE 10 MEQ CONTROLLED RELEASE TAB PO ONE (10:00)
[2017-07-19] MEDS ORDERED: POTASSIUM CHLOR 20 MEQ PREMIX 100 ML IV ONE (10:00)
--- NOTE | 2017-07-19 10:16 | PD.CARD.PN ---
Subjective Subjective Remarks Continues to feel better. Vertigo resolving. Nausea resolved. No CP, dyspnea , palpitations. Objective Medications Item Value Date Time Enoxaparin Sodium 40 mg 07/17/17 1500 (Lovenox Inj) Q24H/SQ 07/18/17 1545 Vital Signs / I&O Vital Signs Date Time Temp Pulse Resp B/P (MAP) Pulse Ox O2 Delivery O2 Flow Rate FiO2 07/19/17 07:00 49 07/19/17 07:00 98.2 58 20 126/51 (76) 100 07/19/17 06:00 46 07/19/17 05:00 48 07/19/17 04:00 44 07/19/17 03:00 98.2 41 22 116/66 (83) 99 07/19/17 03:00 45 07/19/17 02:00 46 07/19/17 01:00 46 07/19/17 00:00 42 07/18/17 23:00 52 07/18/17 23:00 98.4 44 16 103/52 (69) 98 07/18/17 22:00 52 07/18/17 21:00 42 07/18/17 20:00 46 07/18/17 19:14 45 07/18/17 19:00 98.4 51 18 102/52 (69) 99 07/18/17 18:06 44 07/18/17 17:00 46 07/18/17 16:27 99 21 07/18/17 16:02 44 07/18/17 15:04 41 07/18/17 14:09 46 07/18/17 12:00 35 07/18/17 12:00 35 16 130/62 (84) 98 07/18/17 11:00 36 4 135/60 (85) 99 07/18/17 10:28 99 I/O 07/18/17 07/18/17 07/18/17 07/19/17 07/19/17 07/19/17 07:00 15:00 23:00 07:00 15:00 23:00 Intake Total 500 ml 912 ml 1080 ml Output Total 400 ml 1000 ml Balance 100 ml 912 ml 80 ml Intake Oral 500 ml 480 ml 240 ml IV Total 432 ml 840 ml Output Urine Total 400 ml 1000 ml # Voids 3 1 # Bowel Movements 0 Physical Exam GENERAL: Well developed, well nourished. No acute distress. HEENT: Jugular venous pressure is normal. CHEST: Lungs clear to auscultation anteriorly. CARDIAC: Bradycardic regular rhythm without S3, S4, or murmur. ABDOMEN: Soft, nontender, no hepatosplenomegaly. Bowel sounds present. EXTREMITIES: No clubbing, cyanosis, or edema. Laboratory Laboratory Tests Test 07/19/17 06:48 White Blood Count 6.8 TH/MM3 Red Blood Count 4.27 MIL/MM3 Hemoglobin 12.7 GM/DL Hematocrit 38.1 % Mean Corpuscular Volume 89.3 FL Mean Corpuscular Hemoglobin 29.8 PG Mean Corpuscular Hemoglobin Concent 33.4 % Red Cell Distribution Width 13.4 % Platelet Count 175 TH/MM3 Mean Platelet Volume 8.4 FL Blood Urea Nitrogen 8 MG/DL Creatinine 0.60 MG/DL Random Glucose 89 MG/DL Calcium Level 8.2 MG/DL Sodium Level 142 MEQ/L Potassium Level 2.9 MEQ/L Chloride Level 108 MEQ/L Carbon Dioxide Level 26.3 MEQ/L Anion Gap 8 MEQ/L Estimat Glomerular Filtration Rate 104 ML/MIN Assessment and Plan Problem List: (1) Bradycardia ICD Codes: R00.1 - Bradycardia, unspecified Status: Acute Plan: Gradually improving HR's, currently 58. Patient normotensive. Echo normal. Her "dizziness" appears more due to vertigo. Suspect some of the bradycardia may have been vasovagal induced. REC continued monitoring continue meclizine, consider outpatient physical therapy for her vertigo which has been chronic often severe problem consider discharge tomorrow if remains stable Code Status full code Discussed Condition With patient Naveen Monique MD Jul 19, 2017 10:16
[2017-07-19] MEDS: ENOXAPARIN SODIUM 40 MG/0.4 ML SYRINGE SQ SCH (14:03)
--- NOTE | 2017-07-19 14:10 | HHI.PR ---
Subjective Remarks RN reports no setbacks since last night. When walking into the room, pt c/o severe right arm pain where her IV line is in place, said it started hurting alot more after just finishing with her sponge bath. She does state that the pain in her left leg is improved since admission. Objective Vital Signs Date Time Temp Pulse Resp B/P (MAP) Pulse Ox O2 Delivery O2 Flow Rate FiO2 07/19/17 13:00 60 07/19/17 12:00 60 07/19/17 11:00 54 07/19/17 11:00 48 19 109/55 (73) 98 07/19/17 10:35 98 07/19/17 10:00 64 07/19/17 09:00 70 07/19/17 08:00 50 07/19/17 07:00 49 07/19/17 07:00 98.2 58 20 126/51 (76) 100 07/19/17 06:00 46 07/19/17 05:00 48 07/19/17 04:00 44 07/19/17 03:00 98.2 41 22 116/66 (83) 99 07/19/17 03:00 45 07/19/17 02:00 46 07/19/17 01:00 46 07/19/17 00:00 42 07/18/17 23:00 52 07/18/17 23:00 98.4 44 16 103/52 (69) 98 07/18/17 22:00 52 07/18/17 21:00 42 07/18/17 20:00 46 07/18/17 19:14 45 07/18/17 19:00 98.4 51 18 102/52 (69) 99 07/18/17 18:06 44 07/18/17 17:00 46 07/18/17 16:27 99 21 07/18/17 16:02 44 07/18/17 15:04 41 07/18/17 14:09 46 I/O 07/18/17 07/18/17 07/18/17 07/19/17 07/19/17 07/19/17 07:00 15:00 23:00 07:00 15:00 23:00 Intake Total 500 ml 912 ml 1080 ml Output Total 400 ml 1000 ml Balance 100 ml 912 ml 80 ml Intake Oral 500 ml 480 ml 240 ml IV Total 432 ml 840 ml Output Urine Total 400 ml 1000 ml # Voids 3 1 # Bowel Movements 0 Result Diagram: 07/19/1764707/19/17647 Objective Remarks Right arm appears unremarkable, has good cap refill in right fingertips as well as good radial pulse. No worsening of right arm pain upon arm extension or flexion, no discoloration or edema noted where patient is playing the pain. Has mild to moderate tenderness to palpation just distal to IV line site. Patient is tearful and is eventually able to hold a conversation and stop crying. Left leg with erythema on anterior prince with central area of an open wound with no active drainage A/P Assessment and Plan Cellulitis of the left lower extremity/Impetigo. -Was transitioned to Keflex yesterday, continue as such, gabrielle erythematous boundaries daily, will obtain wound culture if possible Sinus bradycardia -Seemed to be asymptomatic. [employer] following. At the moment no indication for any pacemaker. Vertigo, chronic -meclizine. Calcification noted on basal ganglia on CT head, will modify MRI so that it is with and without contrast, PT evaluate and treat Hypokalemia -low today, replaced, repeat in AM DVT prophylaxis -On Lovenox. Quintin Carrillo MD Jul 19, 2017 14:10
[2017-07-20] VITALS (25 sets, daily range): BP systolic 111–125; BP diastolic 53–68; PULSE 43–75; RESP 18–20; TEMP 97.8–98.1; O2SAT 94–100
[2017-07-20] MEDS: SODIUM CHLOR 0.9% 1000 ML INJ 1,000 ML IV SCH (01:35)
[2017-07-20] MEDS: RESP: ALBUTEROL 2.5 MG/IPRATROPIUM 0.5 MG NEB (SCH) INH ×4 (02:56→22:07)
[2017-07-20] MEDS: CHLORHEXIDINE GLUCONATE 2 % 1 PACK (2 CLOTHS) TOP SCH (04:00)
[2017-07-20] MEDS: CEPHALEXIN MONOHYDRATE 500 MG CAP PO SCH ×2 (05:22→12:37)
[2017-07-20 08:02] LABS: BICARBONATE 28.1 MEQ/L (21.0-32.0); POTASSIUM 3.7 MEQ/L (3.5-5.1)
[2017-07-20] MEDS: MECLIZINE HCL 25 MG TAB PO SCH ×3 (08:34→17:32)
--- NOTE | 2017-07-20 08:36 | PD.CARD.PN ---
Subjective Subjective Remarks Denies dizziness, CP, palpitations. Vertigo nearly resolved. No nausea. Objective Medications Item Value Date Time Enoxaparin Sodium 40 mg 07/17/17 1500 (Lovenox Inj) Q24H/SQ 07/19/17 1403 Vital Signs / I&O Vital Signs Date Time Temp Pulse Resp B/P (MAP) Pulse Ox O2 Delivery O2 Flow Rate FiO2 07/20/17 03:00 98.1 52 20 111/63 (79) 96 07/19/17 23:00 98.6 57 20 91/59 (70) 95 07/19/17 20:14 98 07/19/17 19:00 98.5 66 12 123/60 (81) 97 07/19/17 18:09 67 07/19/17 17:00 75 07/19/17 16:00 48 07/19/17 15:00 52 19 112/68 (83) 99 07/19/17 15:00 59 07/19/17 14:00 52 07/19/17 13:00 60 07/19/17 12:00 60 07/19/17 11:00 54 07/19/17 11:00 48 19 109/55 (73) 98 07/19/17 10:35 98 07/19/17 10:00 64 07/19/17 09:00 70 I/O 07/19/17 07/19/17 07/19/17 07/20/17 07/20/17 07/20/17 07:00 15:00 23:00 07:00 15:00 23:00 Intake Total 1080 ml 1320 ml 240 ml Output Total 1000 ml 1050 ml 200 ml Balance 80 ml 270 ml 40 ml Intake Oral 240 ml 720 ml 240 ml IV Total 840 ml 600 ml Output Urine Total 1000 ml 1050 ml 200 ml # Voids 1 # Bowel Movements 2 Physical Exam GENERAL: Well developed, well nourished. No acute distress. HEENT: Jugular venous pressure is normal. CHEST: Lungs clear to auscultation anteriorly. CARDIAC: Bradycardic regular rhythm without S3, S4, or murmur. ABDOMEN: Soft, nontender, no hepatosplenomegaly. Bowel sounds present. EXTREMITIES: No clubbing, cyanosis, or edema. Laboratory Laboratory Tests Test 07/20/17 07:00 Blood Urea Nitrogen 8 MG/DL Creatinine 0.52 MG/DL Random Glucose 79 MG/DL Calcium Level 7.8 MG/DL Sodium Level 142 MEQ/L Potassium Level 3.7 MEQ/L Chloride Level 106 MEQ/L Carbon Dioxide Level 28.1 MEQ/L Anion Gap 8 MEQ/L Estimat Glomerular Filtration Rate 122 ML/MIN Assessment and Plan Problem List: (1) Bradycardia ICD Codes: R00.1 - Bradycardia, unspecified Status: Acute Plan: Gradually improving HR's, now mostly 50's. Patient normotensive. Echo normal. Her "dizziness" appears more due to vertigo. Suspect some of the bradycardia may have been initially vasovagal induced. REC OK to discharge home from a cardiac standpoint continue meclizine, consider outpatient physical therapy for her vertigo which has been chronic often severe problem Code Status full code Discussed Condition With patient Naveen Monique MD Jul 20, 2017 08:36
[2017-07-20] MEDS: ENOXAPARIN SODIUM 40 MG/0.4 ML SYRINGE SQ SCH (16:19)
[2017-07-20] MEDS: SULFAMETHOXAZOLE-TRIMETHOPRIM DS 800-160 MG TAB PO SCH ×2 (17:33→20:16)
--- NOTE | 2017-07-20 18:31 | HHI.PR ---
Subjective Remarks RN reports no setbacks since last night. Patient herself says that her dizziness is much better today, has been able to walk steadily. Objective Vital Signs Date Time Temp Pulse Resp B/P (MAP) Pulse Ox O2 Delivery O2 Flow Rate FiO2 07/20/17 18:21 63 07/20/17 17:45 59 07/20/17 16:26 50 07/20/17 15:45 97.8 51 20 125/67 (86) 98 07/20/17 15:30 50 07/20/17 14:06 52 07/20/17 13:16 75 07/20/17 12:02 51 07/20/17 11:55 98.0 56 18 116/66 (83) 99 07/20/17 11:55 59 07/20/17 10:12 43 07/20/17 09:00 44 07/20/17 08:35 98.1 50 18 119/68 (85) 100 07/20/17 08:35 53 07/20/17 06:00 48 07/20/17 05:00 50 07/20/17 04:00 49 07/20/17 03:00 58 07/20/17 03:00 98.1 52 20 111/63 (79) 96 07/20/17 02:00 56 07/20/17 01:00 58 07/20/17 00:02 60 07/19/17 23:00 98.6 57 20 91/59 (70) 95 07/19/17 23:00 60 07/19/17 22:00 68 07/19/17 21:00 74 07/19/17 20:14 98 07/19/17 20:06 57 07/19/17 19:00 72 07/19/17 19:00 98.5 66 12 123/60 (81) 97 I/O 07/19/17 07/19/17 07/19/17 07/20/17 07/20/17 07/20/17 07:00 15:00 23:00 07:00 15:00 23:00 Intake Total 1080 ml 1320 ml 240 ml 480 ml Output Total 1000 ml 1050 ml 200 ml 1300 ml Balance 80 ml 270 ml 40 ml -820 ml Intake Oral 240 ml 720 ml 240 ml 480 ml IV Total 840 ml 600 ml 0 ml Output Urine Total 1000 ml 1050 ml 200 ml 1300 ml # Voids 1 # Bowel Movements 2 3 Result Diagram: 07/19/17 0648 07/20/17 0700 Objective Remarks No acute distress, sitting up in chair Erythematous lesion with tender central crusted indurated area with no drainage - erythematous border is very minimally receded compared to have marked borders since yesterday A/P Assessment and Plan Cellulitis of the left lower extremity/Impetigo. -No significant improvement with Keflex, we'll discontinue and start Bactrim today, continue marking boundaries, if improving significantly by tomorrow anticipate discharge then. will check bmp in AM to monitor for NICOLE. Sinus bradycardia -Asymptomatic, cardiology following, stable for discharge from their standpoint Vertigo, chronic -meclizine. Case was discussed with radiology, no significant abnormal lesions worth pursuing MRI for. Hypokalemia -normalized DVT prophylaxis -On Lovenox. Quintin Carrillo MD Jul 20, 2017 18:31
[2017-07-21] VITALS (19 sets, daily range): BP systolic 114–131; BP diastolic 58–74; PULSE 41–84; RESP 16–18; TEMP 97.4–98.3; O2SAT 96–99
[2017-07-21] MEDS: CHLORHEXIDINE GLUCONATE 2 % 1 PACK (2 CLOTHS) TOP SCH (04:00)
[2017-07-21] MEDS: RESP: ALBUTEROL 2.5 MG/IPRATROPIUM 0.5 MG NEB (SCH) INH ×2 (04:00→09:34)
[2017-07-21 07:08] LABS: BICARBONATE 27.1 MEQ/L (21.0-32.0); POTASSIUM 4.3 MEQ/L (3.5-5.1)
[2017-07-21] MEDS ORDERED: AMPICILLIN INJ 1,000 MG VIAL IV PUSH SCH (09:30)
[2017-07-21] MEDS: AMPICILLIN 1 GM/NS 100 ML IV SCH ×4 (09:55→16:44)
[2017-07-21] MEDS ORDERED: AMPICILLIN 1 GM/NS 100 ML IV SCH ×2 (10:00)
[2017-07-21] MEDS: MECLIZINE HCL 25 MG TAB PO SCH ×3 (10:04→16:43)
[2017-07-21] MEDS: SULFAMETHOXAZOLE-TRIMETHOPRIM DS 800-160 MG TAB PO SCH (10:04)
[2017-07-21] MEDS: ENOXAPARIN SODIUM 40 MG/0.4 ML SYRINGE SQ SCH (15:00)
[2017-07-21] MEDS ORDERED: AMOX500C PO (17:30)
[2017-07-21] MEDS ORDERED: BACT800T5 PO (17:30)
[2017-07-21] MEDS ORDERED: MECL-62 PO (17:32)
--- NOTE | 2017-07-21 17:33 | HHI.DCPOC ---
Discharge Care Plan Diagnosis: (1) Vertigo (2) Left leg cellulitis (3) Bradycardia Goals to Promote Your Health * To prevent worsening of your condition and complications * To maintain your health at the optimal level Please have your primary care provider check your kidney function within 1 week' s time. Directions to Meet Your Goals Take your medications as prescribed Follow your dietary instruction Follow activity as directed Keep your appointments as scheduled Take your immunizations and boosters as scheduled If your symptoms worsen call your PCP, if no PCP go to Urgent Care Center or Emergency Room Smoking is Dangerous to Your Health. Avoid second hand smoke Call the 24-hour hour crisis hotline for domestic abuse at Quintin Carrillo MD Jul 21, 2017 17:33
--- NOTE | 2017-07-21 17:44 | HHI.DS ---
Discharge Summary Admission Date Jul 17, 2017 at 13:35 Discharge Date: Jul 21, 2017 Admitting Diagnosis left leg cellulitis. Sepsis. Hypokalemia. (1) Vertigo ICD Code: R42 - Dizziness and giddiness Status: Acute (2) Bradycardia ICD Code: R00.1 - Bradycardia, unspecified Status: Chronic (3) Left leg cellulitis ICD Code: L03.116 - Cellulitis of left lower limb Status: Acute Procedures None Brief History - From Admission The patient is a 57-year-old female without significant past medical history, who presented to [facility] ED with complaints of malaise, generalized weakness and dizziness. She also reports swelling and redness of her left lower extremity. She denies any chest pain, shortness of breath, nausea, vomiting or any abdominal pain. She reports headaches along with blurry vision but denies any diplopia. On arrival to the ER she was bradycardic with heart rate of 40s to 50s. The patient was given atropine en route. A CT scan of the brain was obtained which showed increased density within the basal ganglia bilaterally which was thought to represent physiologic calcification. CT otherwise is unremarkable. Her laboratory data is significant for lactic acid of 2.7. The patient was given 2 liters of normal saline and her repeat lactic acid level measured at 1.5. Her troponin level was less than 0.02 with total CK of 138. In the ED the patient was given vancomycin and Zosyn. Chest x-ray in the ER showed no acute disease. The patient denies any use of a calcium channel emil or beta emil that might be attributing to her bradycardia. In addition she denies any history of thyroid disease. She is awake, alert on room air oxygen with saturation of 98%. Temperature is 97.4 orally. CBC/BMP: 07/19/17 0648 07/21/17 0515 Significant Findings Laboratory Tests Test 07/19/17 06:48 07/20/17 07:00 07/21/17 05:15 Calcium Level 8.2 MG/DL (8.5-10.1) 7.8 MG/DL (8.5-10.1) 8.3 MG/DL (8.5-10.1) Potassium Level 2.9 MEQ/L (3.5-5.1) Chloride Level 108 MEQ/L (98-107) Random Glucose 70 MG/DL (74-106) PE at Discharge No nystagmus noted on exam today Left lower leg extremity with receding erythema over anterior prince improving based on erythematous markings from 2 days ago Hospital Course Patient was admitted on telemetry and started on IV fluids. Originally she was admitted to the intensive care unit where she was stabilized and transferred to the medical floor. Cardiology is consulted for bradycardia and concluded that her dizziness was largely from her vertigo; they followed her for her which did stabilize back into the 40s and 50s and the pt became asymptomatic once her vertigo was controlled w/ meclizine.. Her echocardiogram was unremarkable. Patient's cellulitis was managed originally with vancomycin and Zosyn, which she transitioned to Keflex she did not respond adequately. However when she was transitioned to Bactrim and ampicillin there was noted sustained improvement. Patient has met maximum benefit from hospitalization and is clinically stable for discharge. Pt was counseled to follow-up with her PCP within one week to check her renal function. Pt Condition on Discharge: Stable Discharge Disposition: Discharge Home Discharge Time: > 30 minutes Discharge Instructions DIET: Follow Instructions for: As Tolerated, No Restrictions Activities you can perform: Regular-No Restrictions Follow up Referrals: PCP Follow-up - 1 Week New Medications: Amoxicillin (Amoxicillin) 500 Mg Cap 500 MG PO TID for Infection, #12 CAP 0 Refills Meclizine (Meclizine) 25 Mg Tab 25 MG PO TID PRN for VERTIGO, #12 TAB 0 Refills Sulfamethoxazole-Trimethoprim (Bactrim DS) 800-160 Mg Tab 2 TAB PO BID for Infection, #24 TAB 0 Refills Quintin Carrillo MD Jul 21, 2017 17:44
== END 2017-07-21 18:36 | disposition home or self-care (01) | DRG 603 ==
LOC: NEPC 08:24 → NEDA 13:35 → HIMW 16:25 → HCIS 07-18 12:45
PROVIDERS: ADMIT Hospitalist; ATTEND Hospitalist
DX: L03.116 Cellulitis of left lower limb (principal); R00.1 Bradycardia, unspecified; R42 Dizziness and giddiness; E87.6 Hypokalemia; H53.8 Other visual disturbances; R73.9 Hyperglycemia, unspecified; L01.00 Impetigo, unspecified
CPT/HCPCS: 70450; 71010; 80048; 80053; 80307; 81001; 82550; 82552; 83036; 83605; 83735; 84100; 84439; 84443; 84484; 85025; 85027; 85610; 85730; 87040; 87086; 87641; 93005; 93306; 93971; 94640; 94664; 96365; 96367; J0290; J1650; J2405; J2543; J3370; J3480; J7030; J7050